=== PATIENT | female | born 1955 | race Caucasian/White ===

== ENCOUNTER → 2020-09-07 11:23 | Outpatient (BNVA) | payer MEDICARE, SELFPAY | PROVIDERS: Family Provider Family Medicine; Visit Provider Podiatrist Foot & Ankle Surgery | DX: M79.671 Pain in right foot (principal) | CPT/HCPCS: 73630 ==

== ENCOUNTER 2020-09-09 08:57 | Outpatient (CLI) | payer MEDICARE, SELFPAY | END 2020-09-09 08:58 | disposition home or self-care (01) | LOC: WOUND 08:58 | PROVIDERS: Family Provider Family Medicine; Visit Provider Thoracic Surgery (Cardiothoracic Vascular Surgery) | DX: E11.621 Type 2 diabetes mellitus with foot ulcer (principal); L97.512 Non-pressure chronic ulcer of other part of right foot with fat layer exposed | CPT/HCPCS: 11042; 87070; 87077; 87176; 87186; 87205; G0463; L3260 ==

== ENCOUNTER 2020-09-16 08:49 | Outpatient (CLI) | payer MEDICARE, SELFPAY | END 2020-09-16 08:50 | disposition home or self-care (01) | LOC: WOUND 08:51 | PROVIDERS: Family Provider Family Medicine; Visit Provider Thoracic Surgery (Cardiothoracic Vascular Surgery) | DX: E11.621 Type 2 diabetes mellitus with foot ulcer (principal); L97.512 Non-pressure chronic ulcer of other part of right foot with fat layer exposed | CPT/HCPCS: 11042 ==

== ENCOUNTER 2020-09-22 16:15 | Outpatient (CLI) | payer MEDICARE, SELFPAY ==
[2020-09-22 17:06] LABS: Basophils # 0.1 10^3/uL (0.0-0.1); Basophils % 0.6 %; Eosinophils # 0.1 10^3/uL (0.0-0.8); Eosinophils % 0.7 %; Hematocrit 42.1 % (37.0-47.0); Hemoglobin 13.8 g/dL (11.5-15.3); Lymphocytes % 33.8 %; Mean Corpuscular HGB Conc 32.8 g/dL (30.0-36.0); Mean Corpuscular Hemoglobin 30.7 pg (28.0-34.0); Mean Corpuscular Volume 93.8 fL (81-99); Mean Platelet Volume 10.5 fL (7.4-10.4); Monocytes # 0.5 10^3/uL (0.2-0.9); Monocytes % 5.8 %; Nucleated Red Blood Cells % 0 %; Platelet Count 198 10^3/cmm (130-400); Red Blood Count 4.49 10^6/uL (4.1-5.3); Red Cell Distribution Width 12.5 % (12.1-15.1); White Blood Count 8.8 10^3/uL (4.0-10.0)
== END 2020-09-22 16:16 | disposition home or self-care (01) ==
LOC: LAB 16:18
PROVIDERS: PCP Family Medicine; Visit Provider Thoracic Surgery (Cardiothoracic Vascular Surgery)
DX: M86.10 Other acute osteomyelitis, unspecified site (principal)
CPT/HCPCS: 85025

== ENCOUNTER 2020-09-23 13:11 | Outpatient (CLI) | payer MEDICARE, SELFPAY | END 2020-09-23 13:12 | disposition home or self-care (01) | LOC: WOUND 13:13 | PROVIDERS: PCP Family Medicine; Visit Provider Thoracic Surgery (Cardiothoracic Vascular Surgery) | DX: E11.621 Type 2 diabetes mellitus with foot ulcer (principal); L97.512 Non-pressure chronic ulcer of other part of right foot with fat layer exposed | CPT/HCPCS: 11042 ==

== ENCOUNTER 2020-10-07 13:09 | Outpatient (CLI) | payer MEDICARE, SELFPAY | END 2020-10-07 13:10 | disposition home or self-care (01) | LOC: WOUND 13:10 | PROVIDERS: PCP Family Medicine; Visit Provider Nurse Practitioner Family | DX: E11.621 Type 2 diabetes mellitus with foot ulcer (principal); L97.512 Non-pressure chronic ulcer of other part of right foot with fat layer exposed | CPT/HCPCS: 11042 ==

== ENCOUNTER 2020-10-21 13:08 | Outpatient (CLI) | payer MEDICARE, SELFPAY | END 2020-10-21 13:09 | disposition home or self-care (01) | LOC: WOUND 13:08 | PROVIDERS: PCP Family Medicine; Visit Provider Thoracic Surgery (Cardiothoracic Vascular Surgery) | DX: E11.621 Type 2 diabetes mellitus with foot ulcer (principal); L97.512 Non-pressure chronic ulcer of other part of right foot with fat layer exposed | CPT/HCPCS: 11042 ==

== ENCOUNTER 2020-10-28 13:08 | Outpatient (CLI) | payer MEDICARE, SELFPAY | END 2020-10-28 13:09 | disposition home or self-care (01) | LOC: WOUND 13:09 | PROVIDERS: PCP Family Medicine; Visit Provider Thoracic Surgery (Cardiothoracic Vascular Surgery) | DX: E11.621 Type 2 diabetes mellitus with foot ulcer (principal); L97.512 Non-pressure chronic ulcer of other part of right foot with fat layer exposed | CPT/HCPCS: 99212 ==

== ENCOUNTER 2020-11-04 12:59 | Outpatient (CLI) | payer MEDICARE, SELFPAY | END 2020-11-04 13:00 | disposition home or self-care (01) | LOC: WOUND 13:00 | PROVIDERS: PCP Family Medicine; Visit Provider Thoracic Surgery (Cardiothoracic Vascular Surgery) | DX: Z09 Encounter for follow-up examination after completed treatment for conditions other than malignant neoplasm (principal) | CPT/HCPCS: 99212 ==

== ENCOUNTER 2022-02-20 12:20 | Emergency (ER) | payer MEDICARE, SELFPAY ==
[2022-02-20 12:29] VITALS: BP 116/81; PULSE 92; RESP 18; TEMP 37.2; O2SAT 95; BMI 31.1
--- NOTE | 2022-02-20 12:48 | W.ED.EYEPROB ---
HPI - Eye Problem General: Chief complaint: Eye Problems Stated complaint: Left confucianism pain Time Seen by Provider: 02/20/22 12:40 Source: patient Mode of arrival: ambulatory Limitations: no limitations History of Present Illness: 66-year-old female presents emergency room complaining of photophobia left eye pain and confucianism pain. She has a rash developing on the upper eyelid. She was seen 2 days ago on a telehealth appointment was given Toradol she states has not been helping. She usually takes oxycodone on a regular basis. Patient is diabetic. She has photophobia. She is not had any further evaluation for this. The eye is reddened and inflamed with a mild amount of chemosis no purulent drainage. Patient has foreign body sensation in the eye but no pain during the globe of the eye. This COVID she does have in the eye itself is relieved with topical anesthetic. chief complaint: eye pain and eye redness Onset (ago): day(s) Onset description: sudden Duration: constant Location: left eye Eye Symptoms: burning, redness and pain Place: home Mechanism: none Severity: severe If Pain, Quality: sharp and burning Associated symptoms: Reports headache(s); Denies cough, fever(s), nausea, neck pain, numbness, rhinorrhea, short of breath, vomiting or weakness Treatments Prior to Arrival: NSAID Review of Systems Const: Denies: fever(s) ENMT: Denies: throat pain, ear or mastoid pain, nasal discharge or nasal congestion Card: Denies: chest pain, edema, dyspnea on exertion or orthopnea Resp: Denies: dyspnea, productive cough or non-productive cough GI: Denies: nausea or vomiting : Denies: flank pain, difficulty voiding, dysuria, urinary frequency or urinary urgency Musc: Denies: neck pain Skin/Breast: Denies: rash or pruritus Neuro: Reports: headache(s) PFSH ED PFSH: Medical History Diabetes mellitus Hypertension Social History Smoking and tobacco status: current every day smoker Alcohol intake: never Current occupational status: disabled Physical Exam Const: GENERAL APPEARANCE: cooperative and comfortable ORIENTATION/CONSCIOUSNESS: Yes awake, Yes oriented to person, Yes oriented to place and Yes oriented to time HENMT: COMMON NORMALS: normocephalic, atraumatic and hearing grossly normal bilaterally HEAD & SCALP: normocephalic and atraumatic OTHER: No tenderness with palpation along the temporal artery Eye: COMMON NORMALS: Equal, round and reactive pupils present and EOMs intact bilaterally PERIORBITAL: periorbital findings abnormal (Early vesicular rash on the upper eyelid of the left eye.) CONJUNCTIVA: Yes conjunctival abnormal (Chemosis with clear drainage no purulent drainage noted.) PUPIL: Yes Equal, round and reactive pupils present Neck/C-Spine: COMMON NORMALS: no JVD Resp: COMMON NORMALS: normal respiratory effort, No retractions, No use of accessory muscles and clear to auscultation bilaterally AUSCULTATION: clear to auscultation bilaterally Cardio: COMMON NORMALS: no JVD, regular rate, regular rhythm and No murmurs present (Cardio) RATE: regular rate RHYTHM: regular rhythm GI: COMMON NORMALS: Soft to palpation and No hepatosplenomegaly present AUSCULTATION: Yes normoactive bowel sounds PALPATION: Yes Soft to palpation, No Tenderness to palpation present (GI), No Guarding due to palpation present (GI) and Yes No hepatosplenomegaly present Extremity: COMMON NORMALS: normal to inspection, capillary refill normal, no clubbing, cyanosis or edema, no calf tenderness and no pedal edema Neuro: SENSORIUM/ORIENTATION: Yes oriented to person, Yes oriented to place and Yes oriented to time Skin: NARRATIVE SKIN EXAM: Early vesicular lesions of the left upper eyelid at the tip of the nose no vesicular lesions into the ear canal. Course Vital Signs: Vital signs: Vital Signs Temperature 98.9 F 02/20/22 12:29 Pulse Rate 92 02/20/22 15:38 Respiratory Rate 16 02/20/22 15:38 Blood Pressure 102/70 02/20/22 15:38 Pulse Oximetry 93 02/20/22 15:38 MDM - Eye Problem Medical Decision Making Discussed with Dr. Guevara. The discomfort in the eye was related to the topical anesthetic after the initial burn from the anesthetic. There is an abrasion at the [address] Guevara recommends topical erythromycin ointment will also put her on oral steroids and oral antiviral's. Recheck in the office in a couple of days if any worsening symptoms recheck. Medical Records I reviewed the patient's medical records. Lab Data I reviewed the patient's lab results. : 02/20/22 13:[address] 02/20/22 13:44 IMPRESSION: No evidence of acute intracranial abnormality. No acute hemorrhage. No evidence of acute infarct or mass. Laboratory Results WBC 9.0 10^3/uL (4.0-10.0) 02/20/22 13:20 RBC 5.15 10^6/uL (4.1-5.3) 02/20/22 13:20 Hgb 15.7 g/dL (11.5-15.3) H 02/20/22 13:20 Hct 45.4 % (37.0-47.0) 02/20/22 13:20 MCV 88.2 fl (81-99) 02/20/22 13:20 MCH 30.5 pg (28.0-34.0) 02/20/22 13:20 MCHC 34.6 g/dL (30.0-36.0) 02/20/22 13:20 RDW 12.4 % (12.1-15.1) 02/20/22 13:20 Plt Count 314 10^3/cmm (130-400) 02/20/22 13:20 MPV 10.6 fL (7.4-10.4) H 02/20/22 13:20 Total Counted 100 (0-100) 02/20/22 13:20 Atypical Lymphs % 0.0 % (0-5) 02/20/22 13:20 Absolute Neutrophils 7.3 10^3/cmm (1.4-6.5) H 02/20/22 13:20 Segmented Neutrophils 81 % 02/20/22 13:20 Abs Segm Neuts (Man) 7.3 10/cmm (1.6-7.1) H 02/20/22 13:20 Band Neutrophils 0.0 % 02/20/22 13:20 Abs Band Neuts (Man) 0.0 10^3/cmm (0.0-1.2) 02/20/22 13:20 Absolute Lymphocytes 1.6 10^3/cmm (1.2-3.4) 02/20/22 13:20 Lymphocytes (Manual) 18 % 02/20/22 13:20 Monocytes (Manual) 1.0 % 02/20/22 13:20 Absolute Monocytes 0.1 10^3/cmm (0.1-0.6) 02/20/22 13:20 Eosinophils (Manual) 0 % 02/20/22 13:20 Absolute Eosinophils 0.0 10^3/cmm (0.0-0.7) 02/20/22 13:20 Basophils (Manual) 0.0 % 02/20/22 13:20 Absolute Basophils 0.0 10^3/cmm (0.0-0.2) 02/20/22 13:20 Platelet Estimate Normal (Normal) 02/20/22 13:20 ESR 32 mm/hr (0-15) H 02/20/22 13:20 Discharge Plan Discharge Patient Disposition: Home Clinical Impression: Varicella Condition: Stable Prescriptions: New valacyclovir 1 gram tablet 1,000 mg PO TID 7 Days Qty: 21 0RF Medrol (Ervin) 4 mg tablets,dose pack See Rx Instructions .ROUTE .COMPLEX Qty: 21 0RF Rx Instructions: orally per package directions erythromycin 5 mg/gram (0.5 %) ointment 0.5 inch ophthalmic (eye) Q6H Qty: 3.5 0RF No Action lisinopril 20 mg tablet 20 mg PO DAILY 0RF hydrocodone-acetaminophen [[place]] 10-325 mg tablet 1 tab PO Q6H PRN0RF insulin lispro [Humalog KwikPen Insulin] 100 unit/mL insulin pen 22 unit SUBCUT BID 0RF sulfamethoxazole-trimethoprim [Bactrim DS] 800-160 mg tablet 1 tab PO BID Qty: 20 0RF oxycodone-acetaminophen [Percocet] 5-325 mg tablet 1 tab PO Q6H PRN (Reason: pain) 7 Days Qty: 30 0RF Discharge Orders: Discharge ED (Routine); Ordered 02/20/22 Ordered By: Loi Bang Referrals: Charles Guevara MD [Physician] - Le Irving DO [Primary Care Provider] - Patient Instructions: Opioid Safety Activity Restrictions/Additional Instructions: Called Dr. 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
[2022-02-20 13:22] VITALS: RESP 16
[2022-02-20] MEDS: ondansetron 2 mg/ML SDV 2 mL 4 MG IVP (13:22)
[2022-02-20] MEDS: morphine 4 mg/mL SDV 1 mL IVP ×2 (13:22→14:24)
[2022-02-20] MEDS: eye irrigation 30 mL Btl EYE-BOTH (13:26)
[2022-02-20] MEDS: tetracaine 0.5% Op Soln 4 mL Btl 1 DROP EYE-LEFT (13:26)
[2022-02-20] MEDS: fluorescein 1 mg Strip EYE-LEFT (13:27)
[2022-02-20 13:34] LABS: Hematocrit 45.4 % (37.0-47.0); Hemoglobin 15.7 g/dL (11.5-15.3); Mean Corpuscular HGB Conc 34.6 g/dL (30.0-36.0); Mean Corpuscular Hemoglobin 30.5 pg (28.0-34.0); Mean Corpuscular Volume 88.2 fl (81-99); Mean Platelet Volume 10.6 fL (7.4-10.4); Platelet Count 314 10^3/cmm (130-400); Red Blood Count 5.15 10^6/uL (4.1-5.3); Red Cell Distribution Width 12.4 % (12.1-15.1)
[2022-02-20 13:36] LABS: Erythrocyte Sedimentation Rate 32 mm/hr (0-15)
--- NOTE | 2022-02-20 13:44 | CTR_ITS ---
PROCEDURE INFORMATION: Exam: CT Head Without Contrast Exam date and time: 02/20/2022 1:53 PM Age: 66 years old Clinical indication: Pain; Headache TECHNIQUE: Imaging protocol: Computed tomography of the head without contrast. Radiation optimization: All CT scans at this facility use at least one of these dose optimization techniques: automated exposure control; mA and/or kV adjustment per patient size (includes targeted exams where dose is matched to clinical indication); or iterative reconstruction. COMPARISON: No relevant prior studies available. RADIATION DOSE METRICS: Total DLP (mGy-cm): 866.73 FINDINGS: Brain: Low-density areas in inferior aspect of bilateral basal ganglia are suspected to be perivascular spaces. There is a small chronic appearing lacunar infarct in left basal ganglia. Possibly smaller in right basal ganglia. Minimal lucency in white matter compatible with microvascular change. There is no acute intracranial hemorrhage. No extra-axial fluid collection. No evidence of acute infarct. [place] white differentiation is intact. There is no evidence of mass. There is no mass effect or midline shift. There are carotid arteries calcifications. Cerebral ventricles: No ventriculomegaly. Paranasal sinuses: Visualized sinuses are unremarkable. No fluid levels. Mastoid air cells: No significant mastoid effusion. Bones/joints: No acute fracture. Soft tissues: Unremarkable as visualized. CT/CT head wo con* [id number] IMPRESSION: No evidence of acute intracranial abnormality. No acute hemorrhage. No evidence of acute infarct or mass.
[2022-02-20 14:06] LABS: Absolute Segmented Neutrophil 7.3 10/cmm (1.6-7.1); Lymphocytes 18 %; Monocytes Absolute 0.1 10^3/cmm (0.1-0.6); Segmented Neutrophils 81 %; Total Cells Counted 100 (0-100)
[2022-02-20 14:07] LABS: Absolute Neutrophil 7.3 10^3/cmm (1.4-6.5); Eosinophils 0 %; Lymphocytes Absolute 1.6 10^3/cmm (1.2-3.4); Platelet Estimate Normal (Normal)
[2022-02-20 14:24] VITALS: RESP 16
[2022-02-20 15:38] VITALS: BP 102/70; PULSE 92; RESP 16; O2SAT 93
== END 2022-02-20 15:39 | disposition home or self-care (01) ==
PROVIDERS: Emergency Provider Family Medicine; PCP Family Medicine
DX: B01.9 Varicella without complication (principal); E11.9 Type 2 diabetes mellitus without complications; I10 Essential (primary) hypertension; F17.200 Nicotine dependence, unspecified, uncomplicated; Z79.4 Long term (current) use of insulin
CPT/HCPCS: 70450; 85007; 85027; 85651; 96374; 96375; 96376; 99284; J2270; J2405

== ENCOUNTER 2022-08-24 10:37 | Outpatient (CLI) | payer MEDICARE, SELFPAY ==
--- NOTE | 2022-08-24 10:46 | MM_ITS ---
WS: [id number] BILATERAL SCREENING DIGITAL TOMOSYNTHESIS MAMMOGRAM WITH CAD HISTORY: SCREENING COMPARISON: None available. Bilateral CC and MLO views with tomosynthesis and synthetic mammography submitted. Computer aided det ection analyzed. Breast composition: There are scattered areas of fibroglandular density. No suspicious masses, microc alcifications or architectural distortion. Vascular calcification central RIGHT breast. MM/[place] [id number] IMPRESSION: BI-RADS: 2-Benign FOLLOW UP: 1 Year Follow-up
== END 2022-08-24 10:38 | disposition home or self-care (01) ==
LOC: RAD 10:39
PROVIDERS: PCP Family Medicine; Visit Provider Family Medicine
DX: Z12.31 Encounter for screening mammogram for malignant neoplasm of breast (principal)
CPT/HCPCS: 77063; 77067